=== PATIENT | female | born 1965 | race Caucasian/White ===

== ENCOUNTER 2025-06-07 08:17 | Emergency (ER) | payer MEDICARE, MEDICAID, SELFPAY ==
[2025-06-07 08:36] VITALS: BP 125/85; PULSE 86; RESP 18; TEMP 36.9; O2SAT 97; BMI 27.5
--- NOTE | 2025-06-07 08:39 | XR_ITS ---
Examination: Hand, left 3 views Technique: Hand AP, oblique, lateral 3 views Date and time of exam: June 07, 2025, 0921 hours INDICATIONS: Injury to the hand 5 days ago, hand pain. FINDINGS: Moderate osteopenia No acute fracture No foreign body IMPRESSION: No acute fracture On the lateral view the distal ulna is dorsally positioned which may be a function of projection, clinical correlation advised
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
[2025-06-07] MEDS: HYDROcodone/APAP 5/325 TABLET 1 TAB PO (08:55)
== END 2025-06-07 11:08 | disposition home or self-care (01) ==
PROVIDERS: Emergency Provider Family Medicine; PCP Family Medicine
DX: S63.92XA Sprain of unspecified part of left wrist and hand, initial encounter (principal); W22.09XA Striking against other stationary object, initial encounter
CPT/HCPCS: 73130; 99284; A9270